=== PATIENT | male | born 1970 | race Caucasian/White ===

== ENCOUNTER 2017-08-11 16:15 | Emergency (ER) | payer MEDICAID, SELFPAY ==
[2017-08-11 16:15] VITALS: BP 153/100; PULSE 93; RESP 16; TEMP 36.4; O2SAT 97; BMI 33.0
--- NOTE | 2017-08-11 16:33 | ED.DCSUM_ITS ---
- ER Visit Summary Date of Service: 08/11/17 Chief Complaint: Hyperglycemia History of Present Illness: The patient is a 47 M with increased thirst and urination for the past 5 days. Patient was seen by his PCP today and blood sugar was noted to be greater than 600. Patient was sent to the ER for fluids and to rule out DKA. Patient denies any known family history of diabetes. Physical Examination: Vital signs are unremarkable. Head neck examination is significant for dry mucous membranes. Heart is regular rate and rhythm. Lung sounds are clear. Abdomen is soft nontender. Neuro exam is normal. Test Results: CBC was a white count 11.3. Chemistry studies reveal glucose of 654 with sodium 132. Bicarb is 16 and anion gap is 18. LFTs are grossly unremarkable. Urinalysis shows glucose but no ketones. Serum acetone is negative. Emergency Department Course and Treatment: Patient was given 2 L of IV fluid. Half hour later repeat chemistry panel is obtained. Glucose is now 358. Sodium was 135 and potassium is 3.9. Anion gap is 12 and bicarb is 19. At this time patient's primary care physician has already called in oral medication to start his diabetes treatment. He is to follow-up in the office next week. Treatment Plan: [] Disposition: Discharge Impression: New onset diabetes mellitus This note was generated with [employer] dictation software. It may contain incorrect words, spelling, and punctuation that were not noted in review of the chart prior to signing ED Disposition - Plan for ED Patient: Disposition: Home or Assisted Living Chief Complaint: Hyperglycemia Instructions: ED Hyperglycemia New Susp Diabetes Referrals: René Dexter MD [Primary Care Provider] - 1-2 Weeks
[2017-08-11 16:36] LABS: Bacteria 0 SEEN /hpf (None Seen); Mucous, Urine 0 SEEN /hpf (<or=2+); Red Blood Cells-Urine 0 SEEN /hpf (0-5); White Blood Cells 0 SEEN /hpf (0-5)
[2017-08-11 16:39] LABS: Color, Urine Yellow (Yellow); Glucose, Dipstick 1000 mg/dl (Normal); Ketone-Dipstick Negative (Negative); Leukocyte Esterase-Dipstick Negative /ul (Negative); Nitrite-Dipstick Negative (Negative); Occult Blood-Urine Negative /ul (Negative); Protein-Dipstick Negative (Negative); Urine Bilirubin Dipstick Negative (Negative); Urine Clarity Sl. Cloudy (Clear); Urine Urobilinogen Normal (Normal)
[2017-08-11 16:40] LABS: Bedside Glucose > 500 mg/dL (70-110)
[2017-08-11 16:40] LABS: Absolute Lymphocyte Count 3.25 X10^3/ul (0.83-4.51); Absolute Neutrophil Count 7.2 X10^3/uL (2.0-7.7); Basophil# 0.02 X10^3/uL; Basophil% 0.2 % (0-1); Eosinophil# 0.11 X10^3/uL; Hematocrit 43.4 % (40-54); Hemoglobin 14.8 g/dl (13.0-16.5); Lymphocyte # 3.25 X10^3/ul (4.0); Lymphocyte % 28.7 % (19-41); Mean Corp Hgb Conc 34.1 g/gl (32-36); Mean Corpuscular Hgb 29.4 pg (27.0-32.0); Mean Corpuscular Volume 86.1 fL (80-94); Mean Platelet Vol. 12.2 fl (6.2-12.0); Monocyte# 0.69 X10^3/uL; Monocyte% 6.1 % (0-10); Neutrophil % 63.6 % (47-70); Platelet Count 192 K/mm3 (150-450); RBC Distribution Width SD 41.1 fl (35.1-43.9); Red Blood Count 5.04 M/mm3 (4.6-6.2); White Blood Count 11.3 K/mm3 (4.4-11.0)
[2017-08-11 16:42] LABS: POSITIVE COUNT NO; POSITIVE DIFFERENTIAL NO; POSITIVE MORPHOLOGY NO
[2017-08-11] MEDS: 0.9% Normal Saline 1,000 ML 1000 ML IV ×2 (16:42→17:19)
[2017-08-11 16:48] LABS: Squamous Epithelial Cells - UA 0-5 SEEN /hpf (0-5)
[2017-08-11 17:09] LABS: AST(SGOT) 13 U/L (15-37); Alanine Aminotransfer ALT/SGPT 39 U/L (16-61); Albumin, Serum 3.6 g/dL (3.2-5.0); Alkaline Phosphatase 163 U/L (45-117); Anion Gap 18 (5-15); BUN 18 mg/dL (7-18); BUN/Creat Ratio 14.1 RATIO (10-20); Bilirubin, Direct < 0.05 mg/dL (0.00-0.30); Calcium,Total 8.5 mg/dL (8.5-10.1); Chloride 98 mmol/L (98-107); Creatinine, Serum 1.28 mg/dL (0.70-1.30); EST Glomerular Filtration Rate 64 mL/min (>60); Est Glom Filt Rate - Afr Amer 78 mL/min (>60); Estimated Creatinine Clearance 67.42 ml/min; Globulin 3.7 g/dL (2.2-4.2); Glucose 654 mg/dL (74-106); Lipase 105 U/L (73-393); Potassium 4.3 mmol/L (3.5-5.1); Protein, Total 7.3 g/dL (6.4-8.2); Sodium Level 132 mmol/L (136-145)
[2017-08-11 19:35] LABS: Anion Gap 12 (5-15); BUN 14 mg/dL (7-18); BUN/Creat Ratio 18.6 RATIO (10-20); Calcium,Total 7.8 mg/dL (8.5-10.1); Chloride 104 mmol/L (98-107); Creatinine, Serum 0.75 mg/dL (0.70-1.30); EST Glomerular Filtration Rate 119 mL/min (>60); Est Glom Filt Rate - Afr Amer 143 mL/min (>60); Estimated Creatinine Clearance 115.06 ml/min; Glucose 358 mg/dL (74-106); Potassium 3.9 mmol/L (3.5-5.1); Sodium Level 135 mmol/L (136-145)
--- NOTE | 2017-08-11 19:49 | ED.DEP ---
ED Disposition - Plan for ED Patient: Disposition: Home or Assisted Living Chief Complaint: Hyperglycemia Instructions: ED Hyperglycemia New Susp Diabetes Referrals: René Dexter MD [Primary Care Provider] - 1-2 Weeks
[2017-08-11 19:58] VITALS: BP 162/107; PULSE 82; RESP 12; O2SAT 97
== END 2017-08-11 20:02 | disposition home or self-care (01) ==
PROVIDERS: Emergency Provider Emergency Medicine; Family Provider Family Medicine; PCP Family Medicine
DX: E11.65 Type 2 diabetes mellitus with hyperglycemia (principal); Z79.84 Long term (current) use of oral hypoglycemic drugs
CPT/HCPCS: 80048; 80076; 81001; 82009; 82962; 83690; 85025; 96360; 96361; 99283; J7030